=== PATIENT | female | born 1965 | race Asian ===

== ENCOUNTER 2017-05-11 21:27 | Emergency (ER) | payer MEDICAID ==
[~2017-05-11] VITALS: Ht 160 cm; Wt 49.0 kg
[2017-05-11 21:40] VITALS: BP 152/85
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
[2017-05-11 23:30] VITALS: BP 152/85
[2017-05-11] MEDS ORDERED: NORCO 5-325 TA1 EACH ORAL (23:35)
--- NOTE | 2017-05-13 09:42 | Diagnostic Imaging Report ---
Indications: Pain Technique: Spiral images obtained through the facial bones. No IV contrast utilized. Multiplanar reconstructions were generated.Total dose length product 556.29 mGycm. CTDIvol(s) 28.19 mGy. Dose reduction achieved using automated exposure control Comparison: none Findings: No acute fracture. No worrisome sinus opacification. There is minimal ethmoid mucosal thickening. There is evidence of considerable chronic dental disease, with in particular extensive erosion of the alveolar ridge of the maxilla. The visualized intracranial structures are unremarkable. The optic globes are intact. Impression: No acute bony trauma Minimal sinus disease Evidence of extensive chronic dental disease This agrees with the preliminary interpretation provided overnight by [facility] service. The CT scanner at [facility] is accredited by the [employer] and the scans are performed using protocols designed to limit radiation exposure to as low as reasonably achievable to attain images of sufficient resolution adequate for diagnostic evaluation.
--- NOTE | 2017-05-13 09:48 | Diagnostic Imaging Report ---
Clinical Indication: Pain Technique: Spiral acquisitions obtained through the chest. No IV contrast utilized, reason not stated. Multiplanar reconstructions generated. Total dose length product 682.84 mGycm. CTDIvol(s) 21.04 mGy. Dose reduction achieved using automated exposure control Comparison: none Findings: Lungs demonstrate atelectasis or scarring in the inferior lingula. The lungs and pleural spaces are otherwise clear. No evidence of contusion or pneumothorax. The heart is borderline enlarged. No pericardial effusion. No mediastinal or hilar mass or adenopathy. The thyroid is unremarkable. No axillary or chest wall mass or adenopathy. The bones demonstrate very questionable fracture deformities of the anterior left sixth through eighth ribs. No evidence of sternal injury or substernal hematoma. No significant superficial soft tissue contusion. There are degenerative changes of the thoracic spine The included upper abdominal anatomy is unremarkable. Impression: Equivocal left sixth through eighth rib fractures No acute abnormality otherwise Minimal pulmonary atelectatic changes Degenerative spondylosis This agrees with the preliminary interpretation provided overnight by [facility]. The CT scanner at [facility] is accredited by the [employer] and the scans are performed using protocols designed to limit radiation exposure to as low as reasonably achievable to attain images of sufficient resolution adequate for diagnostic evaluation.
== END 2017-05-11 23:30 | disposition home or self-care (01) ==
LOC: EDBD 21:27 → EMR 21:38
DX: S22.49XA Multiple fractures of ribs, unspecified side, initial encounter for closed fracture (principal); S00.83XA Contusion of other part of head, initial encounter; E11.9 Type 2 diabetes mellitus without complications; X58.XXXA Exposure to other specified factors, initial encounter; Y09 Assault by unspecified means; Y92.009 Unspecified place in unspecified non-institutional (private) residence as the place of occurrence of the external cause
CPT/HCPCS: 70486; 71250; 99283

== ENCOUNTER 2019-03-14 15:55 | Emergency (ER) | payer MEDICAID ==
[~2019-03-14] VITALS: Ht 162.6 cm; Wt 59.0 kg
[~2019-03-14 15:55] MED LIST: NORCO 5-325 TA1 EACH ORAL
[2019-03-14 16:10] VITALS: BP 125/85
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
[2019-03-14 16:36] LABS: BASOPHILS % (AUTO) 0.9 % (0.0-2.0); EOSINOPHILS % (AUTO) 1.7 % (0.0-3.0); HEMATOCRIT 33.8 % (37.0-47.0); HEMOGLOBIN 11.3 G/DL (12.0-16.0); LYMPHOCYTES % (AUTO) 24.9 % (20.0-45.0); MEAN CORPUSCULAR VOLUME 89 FL (80-99); NEUTROPHILS % (AUTO) 64.6 % (45.0-75.0); PLATELET COUNT 234 K/UL (150-450); RED CELL DISTRIBUTION WIDTH 11.1 % (11.6-14.8); WHITE BLOOD COUNT 5.7 K/UL (4.8-10.8)
[2019-03-14 16:51] LABS: ANION GAP 13 mmol/L (5-15); BLOOD UREA NITROGEN 17 mg/dL (7-18); CALCIUM 9.3 MG/DL (8.5-10.1); CARBON DIOXIDE 23 MMOL/L (21-32); CHLORIDE 112 MMOL/L (98-107); CREATININE 1.3 MG/DL (0.55-1.30); POTASSIUM 3.9 MMOL/L (3.5-5.1); SODIUM 148 MMOL/L (136-145)
[2019-03-14] MEDS ORDERED: NKM (17:04)
[2019-03-14 17:07] LABS: ALANINE AMINOTRANSFERASE 20 U/L (12-78); ALBUMIN 3.5 G/DL (3.4-5.0); ALBUMIN/GLOBULIN RATIO 0.9 (1.0-2.7); ALKALINE PHOSPHATASE 101 U/L (46-116); ASPARTATE AMINO TRANSFERASE 18 U/L (15-37); BILIRUBIN,TOTAL 0.4 MG/DL (0.2-1.0); CREATINE KINASE 191 U/L (26-308)
--- NOTE | 2019-03-14 17:24 | NUR ---
ED Nurse Note: pt voided on bedpan, urine sent. tolerates #1 L NS without dyspnea, #2 infusing well.
[2019-03-14 17:43] LABS: APPEARANCE,URINE CLEAR; BILIRUBIN, URINE NEGATIVE (NEGATIVE); COLOR,URINE PALE YELLOW; GLUCOSE, URINE (UA) NEGATIVE (NEGATIVE); KETONES,URINE 1+ (NEGATIVE); LEUKOCYTE ESTERASE ,URINE 1+ (NEGATIVE); NITRITE,URINE POSITIVE (NEGATIVE); PH,URINE 5 (4.5-8.0); PROTEIN,URINE 1+ (NEGATIVE); UROBILINOGEN,URINE NORMAL MG/DL (0.0-1.0)
[2019-03-14 17:45] VITALS: BP 114/59
--- NOTE | 2019-03-14 18:03 | NUR ---
ED Nurse Note: mother of pt at bs.
[2019-03-14] MEDS ORDERED: cefTRIAXone 1 GM in NS 55 ML IVPB ONE (18:15)
--- NOTE | 2019-03-14 18:22 | NUR ---
ED Nurse Note: md reeval of pt.
[2019-03-14] MEDS ORDERED: HALOPERIDOL10 MG ORAL (18:28)
[2019-03-14] MEDS ORDERED: CEPHALEXIN500 MG ORAL (18:28)
[2019-03-14] MEDS ORDERED: METFORMIN HCL500 M1 ORAL (18:28)
[2019-03-14 18:45] VITALS: BP 125/85
--- NOTE | 2019-03-14 18:52 | NUR ---
ER DISCHARGE NOTE: Patient is cleared to be discharged per ERMD, pt is mentating at baseline, on room air, with stable vital signs. pt was given dc and prescription instructions, pt's mother was able to verbalize understanding, pt id band and iv site removed without complications. pt is able to ambulate. pt took all belongings and given clothes from donation collection. pt's mother understands importance of keeping appts as educated by ERMD.
--- NOTE | 2019-03-15 17:51 | Cardiology Report ---
APPROVED REPORT EKG Measurement Heart [id number] Normal sinus rhythm Normal ECG
== END 2019-03-14 18:50 | disposition home or self-care (01) ==
LOC: EDBD 15:55 → EMR 16:14
DX: F91.9 Conduct disorder, unspecified (principal); N39.0 Urinary tract infection, site not specified; F31.9 Bipolar disorder, unspecified; F20.9 Schizophrenia, unspecified; E11.9 Type 2 diabetes mellitus without complications
CPT/HCPCS: 36415; 80053; 80307; 81003; 82550; 82553; 82962; 84484; 85025; 87086; 93005; 96361; 96365; G0480; G0481; J0696; Z7502; 99284; J7030